=== PATIENT | female | born 1990 | race Caucasian/White ===

== ENCOUNTER → 2018-08-12 | Emergency (ER) | payer OTHER ==
[~2018-08-12] VITALS: Ht 152.4 cm; Wt 65.3 kg
[~2018-08-12] MED LIST: PRENATABS FA T1 EACH
== END | disposition home or self-care (01) ==
LOC: ER 16:41
DX: B96.0 Mycoplasma pneumoniae [M. pneumoniae] as the cause of diseases classified elsewhere (principal); D64.9 Anemia, unspecified; B34.9 Viral infection, unspecified

== ENCOUNTER 2018-09-25 18:08 | Outpatient (CLI) | payer OTHER ==
[2018-09-26] MEDS ORDERED: ZOFRAN4 MG PO (10:24)
[2018-09-26] MEDS ORDERED: ZANTAC150 M3 PO (10:26)
[2018-09-26] MEDS ORDERED: FUSION CAPSULE1 EACH PO (10:27)
== END 2018-09-26 13:00 | disposition home or self-care (01) ==
LOC: OBS/DEL 18:08
DX: O26.893 Other specified pregnancy related conditions, third trimester (principal); R11.2 Nausea with vomiting, unspecified; E86.0 Dehydration; Z34.83 Encounter for supervision of other normal pregnancy, third trimester

== ENCOUNTER 2021-07-16 12:43 | Emergency (ER) | payer OTHER ==
[~2021-07-16] VITALS: Ht 152.4 cm; Wt 54.4 kg
[~2021-07-16 12:43] MED LIST changes: +FOLTX TABLET1 EACH PO; +FUSION CAPSULE1 EACH PO; +IBUPROFEN800 MG PO; +PRENATAL TABLE1 EACH PO; +ZANTAC150 M3 PO; +ZOFRAN4 MG PO
== END 2021-07-16 17:46 | disposition home or self-care (01) ==
LOC: ER 12:43
DX: R42 Dizziness and giddiness (principal); R53.81 Other malaise; R07.89 Other chest pain; R55 Syncope and collapse